=== PATIENT | female | born 1955 | race Caucasian/White ===

== ENCOUNTER → 2017-12-16 | Outpatient (CLI) | payer OTHER ==
[~2017-12-16] MED LIST: GADAVIST IV PRN
--- NOTE | 2017-12-16 16:46 | DIAGNOSTIC IMAGING REPORT ---
MRI OF THE SACRUM COMBO CLINICAL HISTORY: Sacral pain. COMPARISON STUDY: No priors. TECHNIQUE: MRI of the sacrum was performed utilizing various T1 and T2-weighted sequences in the axial, sagittal, and coronal planes. Contrast-enhanced sequences were acquired following the IV administration of 9 cc of Gadavist. FINDINGS: There are no marrow signal abnormalities/edema identified in the sacrum. Marrow signal intensity is slightly heterogeneous. No destructive bony lesion is seen. There is mild degenerative change with no significant edema seen involving the sacroiliac joints. A 3.2 x 2.7 x 2.5 cm Tarlov cyst is identified in the right aspect of the sacrum at the level of S2. This could potentially impinge on the right S2-S3 sacral foramen. A 7 mm Tarlov cyst is identified in the left aspect of the sacrum at this level. No enhancing mass lesion is identified on the postcontrast sequences. There is a posterior disc bulge at L5-S1. Facet arthropathy at L5-S1 causes minimal bilateral neural foraminal stenosis. Mild epidural lipomatosis is suggested in the lower central canal. A 1.7 cm cystic focus is noted in the left ovary. IMPRESSION: 1. There is no marrow edema or destructive bony process identified involving the sacrum. 2. There is a 3.2 cm Tarlov cyst identified on the right at the level of S2. This is of indeterminant significance and could potentially impinge on the right S2-S3 sacral foramen. Clinical correlation will be required. 3. A 1.7 cm cystic focus is noted in the left ovary. This is of low suspicion but is an abnormal finding in a post menopausal female. Follow-up with a pelvic ultrasound is recommended for further assessment. Dictated: 12/16/2017 4:30 PM Transcribed: 12/16/2017 4:45 PM Case Electronically signed by: Moe Ramos M.D. 12/16/2017 7:12 PM Dictated Date/Time: 12/16/2017 4:30 PM
== END | disposition home or self-care (01) ==
LOC: C.MRI 14:55
PROVIDERS: ATTEND Orthopaedic Surgery Orthopaedic Surgery of the Spine
DX: R52 Pain, unspecified (principal)